=== PATIENT | female | born 1960 | race Caucasian/White ===

== ENCOUNTER 2021-11-21 19:53 | Emergency (ER) | payer SELFPAY ==
[~2021-11-21] VITALS: Ht 160 cm; Wt 84.4 kg
[~2021-11-21 19:53] MED LIST: AMOXICILLIN500 MG PO; ASPIRIN81 M1 PO; BACTRIM DS 8001 TA1 PO; BUSPAR10 MG PO; CELEXA20 MG PO; CLARITIN10 MG PO; FISH OIL 10001000 MG; FLEXERIL5 MG PO; HYDROCODONE BIT1 T11 PO; MOTRIN800 MG PO; MULTIPLE VITAMI1 CTB PO; MYCOSTATIN100000 U/M PO; PREDNISONE20 MG PO; PRILOSEC20 M1 PO; PRINIVIL5 MG PO; SEPTRA DS 800 M1 TAB PO; TORADOL10 MG PO; TRAMADOL HCL50 MG PO; ULTRAM50 MG PO; VIBRAMYCIN100 MG PO; VICODIN ES 7501 TAB PO; XANAX0.5 MG PO; [UNRECOGNIZED DRUG - REMARK]
[2021-11-21 20:18] VITALS: BP 149/63
== END 2021-11-21 23:54 | disposition home or self-care (01) ==
LOC: ED 19:53
DX: S22.32XA Fracture of one rib, left side, initial encounter for closed fracture (principal); S00.83XA Contusion of other part of head, initial encounter; Z90.49 Acquired absence of other specified parts of digestive tract; Z79.899 Other long term (current) drug therapy; Z79.82 Long term (current) use of aspirin; W01.198A Fall on same level from slipping, tripping and stumbling with subsequent striking against other object, initial encounter; Y93.01 Activity, walking, marching and hiking; Y92.481 Parking lot as the place of occurrence of the external cause; Y99.9 Unspecified external cause status

== ENCOUNTER 2023-02-26 23:11 | Emergency (ER) | payer SELFPAY ==
[~2023-02-26] VITALS: Ht 160 cm; Wt 85.7 kg
[2023-02-27 00:22] VITALS: BP 147/74
[2023-02-27] MEDS ORDERED: PREDNISONE50 MG PO (00:28)
[2023-02-27] MEDS ORDERED: CEPHALEXIN500 M1 PO (00:28)
== END 2023-02-27 01:03 | disposition home or self-care (01) ==
LOC: ED 23:11
DX: T63.481A Toxic effect of venom of other arthropod, accidental (unintentional), initial encounter (principal); F32.A Depression, unspecified; K21.9 Gastro-esophageal reflux disease without esophagitis; I10 Essential (primary) hypertension; Z90.49 Acquired absence of other specified parts of digestive tract; Z90.711 Acquired absence of uterus with remaining cervical stump; Y92.89 Other specified places as the place of occurrence of the external cause

== ENCOUNTER 2025-01-08 12:08 | Emergency (ER) | payer MEDICARE, OTHER ==
[~2025-01-08] VITALS: Ht 160 cm; Wt 89.8 kg
[~2025-01-08 12:08] MED LIST changes: +CEPHALEXIN500 M1 PO; +PREDNISONE50 MG PO
[2025-01-08] MEDS ORDERED: Ondansetron Hydrochloride 4 MG/2 ML VIAL IV ONE (12:30)
[2025-01-08] MEDS ORDERED: Dexamethasone Sodium Phospha 20 MG/5 ML VIAL IV ONE (12:30)
[2025-01-08] MEDS ORDERED: diazePAM 5 MG TAB PO ONE (12:30)
[2025-01-08 13:36] VITALS: BP 142/53
[2025-01-08] MEDS ORDERED: PREDNISONE20 M1 PO (15:09)
[2025-01-08] MEDS ORDERED: TRAMADOL HCL50 MG PO (15:09)
[2025-01-08] MEDS ORDERED: Ondansetron4 MG PO (15:09)
[2025-01-08] MEDS ORDERED: METHOCARBAMOL750 M1 PO (15:09)
== END 2025-01-08 15:13 | disposition home or self-care (01) ==
LOC: ED 12:08
DX: M54.16 Radiculopathy, lumbar region (principal); I10 Essential (primary) hypertension; F32.A Depression, unspecified; K21.9 Gastro-esophageal reflux disease without esophagitis; Z79.82 Long term (current) use of aspirin; Z79.899 Other long term (current) drug therapy; Z90.49 Acquired absence of other specified parts of digestive tract; Z90.710 Acquired absence of both cervix and uterus

== ENCOUNTER 2025-03-21 13:54 | Emergency (ER) | payer MEDICARE, OTHER ==
[~2025-03-21] VITALS: Ht 160 cm; Wt 85.7 kg
[~2025-03-21 13:54] MED LIST changes: +METHOCARBAMOL750 M1 PO; +Ondansetron4 MG PO; +PREDNISONE20 M1 PO
[2025-03-21 14:07] VITALS: BP 136/67
[2025-03-21] MEDS ORDERED: METFORMIN HYDR500 MG PO (14:07)
[2025-03-21] MEDS ORDERED: Ondansetron Hydrochloride 4 MG/2 ML VIAL IV ONE (14:20)
[2025-03-21] MEDS ORDERED: SODIUM CHLORIDE 0.9% 1,000 ML IV ONE (14:20)
[2025-03-21] MEDS ORDERED: fentaNYL CITRATE/PF 50 MCG/ML SYRINGE IV ONE (14:20)
[2025-03-21 14:33] LABS: BASO # 0.1 10*3/uL (0.0-0.1); BASO % 0.5 % (0.0-1.0); EOS # 0.5 10*3/uL (0.0-0.4); EOS % 3.9 % (1.0-4.0); MEAN CELL VOLUME 94.7 fl (81.0-99.0); MEAN CORPUSCULAR HGB 30.2 pg (27.0-31.0); MEAN PLATELET VOLUME 9.9 fl (9.6-12.3); MONO # 1.0 10*3/uL (0.1-1.0); MONO % 7.5 % (3.0-9.0); NEUT # 6.5 10*3/uL (2.3-7.9); NEUT % 51.3 % (47.0-73.0); NUCLEATED RED BLOOD CELL 0.0 % (0.0-0.0); NUCLEATED RED BLOOD CELL 0.0 10*3/uL (0.0-0.0); PLATELET COUNT AUTOMATED 440 10*3/uL (130-400); RED CELL DISTRI WIDTH 13.2 % (0-14.5)
[2025-03-21 15:04] LABS: BUN 16 mg/dl (9-23)
[2025-03-21] MEDS ORDERED: MELOXICAM15 MG PO (16:04)
== END 2025-03-21 16:39 | disposition home or self-care (01) ==
LOC: ED 13:54
PROVIDERS: Emergency Medicine
DX: R07.89 Other chest pain (principal); R09.1 Pleurisy; J44.9 Chronic obstructive pulmonary disease, unspecified; I10 Essential (primary) hypertension; K21.9 Gastro-esophageal reflux disease without esophagitis; F32.A Depression, unspecified; F17.200 Nicotine dependence, unspecified, uncomplicated; Z90.710 Acquired absence of both cervix and uterus; Z90.49 Acquired absence of other specified parts of digestive tract